=== PATIENT | female | born 1985 | race Caucasian/White ===

== ENCOUNTER 2019-02-16 17:05 | Inpatient (IN) | payer SELFPAY ==
--- NOTE | 2019-02-16 17:26 | Event Note ---
ED Screening Note ED Screening Note: Pt presnets with epigastric abd pain that began 45 min ago states she ate something spicy and began feeling pain after +N/V no diarrhea no fever no cycle, has IUD no urinary sx no abd surgeries no medical hx no daily meds no allergies to meds non smoker non drinker no drug use This initial assessment/diagnostic orders/clinical plan/treatment(s) is/are subject to change based on patients health status, clinical progression and re- assessment by fellow clinical providers in the ED. Further treatment and workup at subsequent clinical providers discretion. Patient/guardian urged not to elope from the ED as their condition may be serious if not clinically assessed and managed. Initial orders include: labs, UA, urine preg
[2019-02-16 18:00] LABS: Basophils # (Auto) 0.1 K/mm3 (0.0-0.1); Basophils % (Auto) 0.7 % (0.0-1.8); Eosinophils # (Auto) 0.2 K/mm3 (0.0-0.4); Eosinophils % (Auto) 1.5 % (0.0-4.3); Hematocrit 40.6 % (30.3-42.9); Hemoglobin 13.6 gm/dl (10.1-14.3); Lymphocytes # (Auto) 4.3 K/mm3 (1.2-5.4); Lymphocytes % (Auto) 41.5 % (13.4-35.0); Mean Corpuscular HGB Conc 34 % (30-34); Mean Corpuscular Volume 82 fl (79-97); Monocytes # (Auto) 0.6 K/mm3 (0.0-0.8); Monocytes % (Auto) 5.4 % (0.0-7.3); Platelet Count 316 K/mm3 (140-440); Red Blood Count 4.96 M/mm3 (3.65-5.03); Red Cell Distribution Width 14.5 % (13.2-15.2)
[2019-02-16 18:11] LABS: Bacteria,Urine 1+ /HPF (Negative); Bilirubin,Urine NEG (Negative); Blood,Urine NEG (Negative); Color,Urine Yellow (Yellow); HCG Qualitative,Urine Negative (Negative); Mucus,Urine FEW /HPF; Protein,Urine <15 mg/dL mg/dL (Negative); Urobilinogen,Urine < 2.0 mg/dL (<2.0)
[2019-02-16 18:19] LABS: Alanine Aminotransferase 54 units/L (7-56); Albumin 4.2 g/dL (3.9-5); BUN/Creatinine Ratio 26; Blood Urea Nitrogen 18 mg/dL (7-17); Calcium 9.2 mg/dL (8.4-10.2); Hemolysis Index 6
[2019-02-16] MEDS ORDERED: NACL 0.9% 1000 ML 1,000 ML IV ONE (19:26)
[2019-02-16] MEDS ORDERED: TORADOL IV ONE (19:26)
[2019-02-16] MEDS ORDERED: ZOFRAN IV ONE (19:26)
--- NOTE | 2019-02-16 19:34 | Emergency Department Report ---
ED Abdominal Pain HPI - General Chief Complaint: Abdominal Pain Stated Complaint: ABD PAIN Time Seen by Provider: 02/16/19 17:24 Source: patient Mode of arrival: Ambulatory Limitations: No Limitations - History of Present Illness Initial Comments: pt is a 33 y/o female who presents for epigastric pain 5/10 radiating to RUQ, there is intermittent N/V , no fever or chills pt has hx of GERD , pain is exacerbated by po intake , pt not currently taking PPI or H2 Blockers MD Complaint: abdominal pain Onset/Timin Location: RUQ, epigastric Radiation: RUQ Migration to: RUQ Severity: moderate Severity scale (0 -10): 5 Quality: burning, other (pressure ) Consistency: constant Improves With: rest Worsens With: eating Associated Symptoms: nausea, vomiting. denies: diarrhea, fever, chills, constipation, dysuria, melena, hematuria, anorexia, syncope - Related Data LMP Date: 02/09/19 Previous Rx's Medication Instructions Recorded Last Taken Type Ibuprofen [Motrin 800 MG tab] 800 mg PO Q8HR PRN #30 tablet 12/24/15 Unknown Rx oxyCODONE /ACETAMINOPHEN [Percocet 2 tab PO Q6HR PRN #30 tablet 12/24/15 Unknown Rx 5/325] Allergies Allergy/AdvReac Type Severity Reaction Status Date / Time No Known Allergies Allergy Verified 12/24/15 03:40 ED Review of Systems ROS: Stated complaint: ABD PAIN Other details as noted in HPI Constitutional: denies: chills, fever Eyes: denies: eye pain, eye discharge, vision change ENT: denies: ear pain, throat pain Respiratory: denies: cough, shortness of breath, wheezing Cardiovascular: denies: chest pain, palpitations Endocrine: no symptoms reported Gastrointestinal: abdominal pain, nausea, vomiting. denies: diarrhea, constipation, hematemesis, melena, hematochezia Genitourinary: denies: urgency, dysuria, frequency, hematuria, discharge, dyspareunia Musculoskeletal: denies: back pain, joint swelling, arthralgia Skin: denies: rash, lesions Neurological: denies: headache, weakness, paresthesias Psychiatric: denies: anxiety, depression Hematological/Lymphatic: denies: easy bleeding, easy bruising ED Past Medical Hx - Past Medical History Previous Medical History?: Yes Hx Hypertension: No Hx Diabetes: No Hx Deep Vein Thrombosis: No Hx Renal Disease: No Hx Sickle Cell Disease: No Hx Seizures: No Hx Asthma: No Hx HIV: No Additional medical history: Vaginal delivery 09-11-2018 - Social History Smoking Status: Never Smoker Substance Use Type: None - Medications Home Medications: Home Medications Medication Instructions Recorded Confirmed Last Taken Type Ibuprofen [Motrin 800 MG tab] 800 mg PO Q8HR PRN #30 tablet 12/24/15 Unknown Rx oxyCODONE /ACETAMINOPHEN [Percocet 2 tab PO Q6HR PRN #30 tablet 12/24/15 U nknown Rx 5/325] ED Physical Exam - General Limitations: No Limitations General appearance: alert - Head Head exam: Present: atraumatic, normocephalic - Eye Eye exam: Present: normal appearance, PERRL, EOMI Pupils: Present: normal accommodation - ENT ENT exam: Present: normal orophraynx, mucous membranes moist, TM's normal bilaterally, normal external ear exam - Neck Neck exam: Present: normal inspection, full ROM. Absent: tenderness, lymphadenopathy, thyromegaly - Respiratory Respiratory exam: Present: normal lung sounds bilaterally. Absent: respiratory distress, wheezes, stridor, chest wall tenderness - Cardiovascular Cardiovascular Exam: Present: regular rate, normal rhythm, normal heart sounds. Absent: systolic murmur, diastolic murmur, rubs, gallop - GI/Abdominal GI/Abdominal exam: Present: soft, tenderness (RUQ Epigasric ), normal bowel sounds. Absent: distended, guarding, rebound, rigid, bruit, hernia - Expanded GI/Abdominal Exam Expanded GI/Abdominal exam: Present: Kamara's sign. Absent: psoas sign, obturator sign, heel tap sign, Rovsing's sign, tenderness at Mcburney's Point, ascites - Rectal Rectal exam: Present: deferred - Extremities Exam Extremities exam: Present: normal inspection, full ROM, normal capillary refill. Absent: tenderness, pedal edema, joint swelling, calf tenderness - Back Exam Back exam: Present: normal inspection, full ROM. Absent: tenderness, CVA tenderness (R), CVA tenderness (L), muscle spasm, paraspinal tenderness, vertebral tenderness, rash noted - Neurological Exam Neurological exam: Present: alert, oriented X3, CN II-XII intact, normal gait, reflexes normal. Absent: motor sensory deficit - Psychiatric Psychiatric exam: Present: normal affect, normal mood - Skin Skin exam: Present: warm, dry, intact, normal color. Absent: rash ED Course Vital Signs 02/16/19 17:19 Temperature 98.8 F Pulse Rate 76 Respiratory 22 Rate Blood Pressure 139/91 O2 Sat by Pulse 100 Oximetry ED Medical Decision Making - Lab Data Result diagrams: 02/16/19 17:35 02/16/19 17:35 Labs 02/16/19 02/16/19 02/16/19 17:34 17:35 17:35 WBC 10.3 RBC 4.96 Hgb 13.6 Hct 40.6 MCV 82 MCH 28 MCHC 34 RDW 14.5 Plt Count 316 Lymph % (Auto) 41.5 H [place] % (Auto) 5.4 Eos % (Auto) 1.5 Baso % (Auto) 0.7 Lymph # 4.3 [place] # 0.6 Eos # 0.2 Baso # 0.1 Seg Neutrophils % 50.9 Seg Neutrophils # 5.2 Sodium 141 Potassium 3.7 Chloride 102.4 Carbon Dioxide 26 Anion Gap 16 BUN 18 H Creatinine 0.7 Estimated GFR > 60 BUN/Creatinine Ratio 26 Glucose 94 Calcium 9.2 Total Bilirubin < 0.20 AST 64 H ALT 54 Alkaline Phosphatase 105 Total Protein 7.9 Albumin 4.2 Albumin/Globulin Ratio 1.1 Lipase 21 Urine Color Yellow Urine Turbidity Slightly-cloudy Urine pH 5.0 Ur Specific [place] 1.031 H Urine Protein <15 mg/dl Urine Glucose (UA) Neg Urine Ketones Neg Urine Blood Neg Urine Nitrite Neg Urine Bilirubin Neg Urine Urobilinogen < 2.0 Ur Leukocyte Esterase Neg Urine WBC (Auto) 2.0 Urine RBC (Auto) 3.0 U Epithel Cells (Auto) 8.0 Urine Bacteria (Auto) 1+ Urine Mucus Few Urine HCG, Qual Negative - Radiology Data Radiology results: report reviewed, image reviewed Ordering Physician: KWAME BAY NP Date of Service: 02/16/19 Procedure(s): US abdomen limited Accession Number(s): [id number] cc: KWAME BAY NP PROCEDURE: US ABDOMEN LIMITED TECHNIQUE: Real-time sonography was performed of the right upper quadrant with image documentation. HISTORY: abd pain COMPARISONS: None . FINDINGS: Pancreas is not well-visualized due to bowel gas. Liver and right kidney demonstrate normal echotexture. Right kidney measures 9.6 x 5.6 x 4.4 cm. There are no calculi or hydronephrosis. Proximal aorta is of normal caliber. Gallbladder is filled with multiple shadowing calculi measuring up to 1.4 cm. Gallbladder lazcano are mildly thickened. Common duct is 10 mm in diameter. IMPRESSION: Cholelithiasis with evidence of cholecystitis. Common duct is mildly dilated measuring 10 mm.. This document is electronically signed by Effie Garcia MD., February 16 2019 08:55:48 PM ET Transcribed By: [facility] [place] Dictated By: EFFIE GARCIA Electronically Authenticated By: EFFIE GARCIA Signed Date/Time: 02/16/192056 DD/ 16 TD/TT: 02/16/192016 - Medical Decision Making US Gallbadder : 10mm common bile duct dilitation, N/v is improved, ed attending consulted recommendation consult GI and Admiission, ivfs and pain co ntrol, GI consulted advised admission dx : cholecystitis discussed tx plan with patient , patient agrees with admission, will admit to Hospitalist Dx Cholecystitis pat care handoff at this time to hospitalist. Critical care attestation.: If time is entered above; I have spent that time in minutes in the direct care of this critically ill patient, excluding procedure time. ED Disposition Clinical Impression: Cholecystitis Cholelithiasis Qualifiers: Cholelithiasis location: bile duct Cholecystitis presence: with cholecystitis Cholecystitis acuity: acute Biliary obstruction: with biliary obstruction Qualified Code(s): K80.43 - Calculus of bile duct with acute cholecystitis with obstruction Disposition: -09 OP ADMIT IP TO THIS HOSP Is pt being admited?: Yes Does the pt Need Aspirin: No Condition: Stable Instructions: Cholecystitis (ED) Time of Disposition: 22:55
--- NOTE | 2019-02-16 20:57 | Ultrasound Report ---
PROCEDURE: US ABDOMEN LIMITED TECHNIQUE: Real-time sonography was performed of the right upper quadrant with image documentation. HISTORY: abd pain COMPARISONS: None . FINDINGS: Pancreas is not well-visualized due to bowel gas. Liver and right kidney demonstrate normal echotextu re. Right kidney measures 9.6 x 5.6 x 4.4 cm. There are no calculi or hydronephrosis. Proximal aorta is of normal caliber. Gallbladder is filled with multiple shadowing calculi measuring up to 1.4 cm. G allbladder lazcano are mildly thickened. Common duct is 10 mm in diameter. IMPRESSION: Cholelithiasis with evidence of cholecystitis. Common duct is mildly dilated measuring 10 mm.. This document is electronically signed by Wilian Garcia MD., February 16 2019 08:55:48 PM ET
[2019-02-16] MEDS ORDERED: BENADRYL IV ONE (21:29)
[2019-02-16] MEDS ORDERED: MORPHINE IV PRN (21:29)
[2019-02-16] MEDS ORDERED: REGLAN IV PRN (21:29)
[2019-02-16] MEDS ORDERED: ZOSYN/NS 4.5GM/100ML 4.5 GM/100 ML VIAL IV ONE (21:39)
[2019-02-16] MEDS ORDERED: SODIUM CHLORIDE FLUSH SYRINGE 10 ML IV PRN (23:16)
[2019-02-16] MEDS ORDERED: TYLENOL PO PRN (23:16)
[2019-02-16] MEDS ORDERED: ZOFRAN IV PRN (23:16)
[2019-02-16] MEDS ORDERED: TORADOL IV PRN (23:19)
--- NOTE | 2019-02-16 23:24 | History and Physical Report ---
<AMIRA EGAN - Last Filed: 02/16/19 23:50> History of Present Illness Date of examination: 02/16/19 Date of admission: 02/16/2019 Chief complaint: Abdominal pain History of present illness: 33-year-old mother of 4 with no significant past medical history presents to [facility] ED with complaints of epigastric abdominal pain x2days. She states she has been experiencing sharp epigastric pain radiating to RUQ for the past 2 days. Patient states her pain is constant but varies in intensity. She rates her pain 5/10. Her pain is aggravated by oral intake, and relieved ith pain meds and not eating. She complains of associated nausea and emesis 2. Denies: hx of GERD, constipation, diarrhea, fever, headache, hemoptysis, hematochezia, or melena Past History Past Medical History: other (vaginal delivery x4) Past Surgical History: No surgical history Social history: , lives with family Family history: no significant family history Medications and Allergies Allergies Allergy/AdvReac Type Severity Reaction Status Date / Time No Known Allergies Allergy Verified 12/24/15 03:40 Home Medications Medication Instructions Recorded Confirmed Last Taken Type Ibuprofen [Motrin 800 MG tab] 800 mg PO Q8HR PRN #30 tablet 12/24/15 Unknown Rx oxyCODONE /ACETAMINOPHEN [Percocet 2 tab PO Q6HR PRN #30 tablet 12/24/15 Unknown Rx 5/325] Active Meds: Active Medications Acetaminophen (Tylenol) 650 mg PO Q4H PRN PRN Reason: Pain MILD(1-3)/Fever >100.5/OLIVER Enoxaparin Sodium (Lovenox) 40 mg SUB-Q QDAY MARICRUZ Sodium Chloride (Nacl 0.9% 1000 Ml) 1,000 mls @ 125 mls/hr IV DIRECT MARICRUZ Ketorolac Tromethamine (Toradol) 15 mg IV Q6H PRN PRN Reason: Pain, Mild (1-3) Stop: 02/21/19 23:18 Metoclopramide HCl (Reglan) 10 mg IV Q6H PRN PRN Reason: Nausea And Vomiting Morphine Sulfate (Morphine) 2 mg IV Q4H PRN PRN Reason: Pain, Moderate (4-6) Ondansetron HCl (Zofran) 4 mg IV Q8H PRN PRN Reason: Nausea And Vomiting Sodium Chloride (Sodium Chloride Flush Syringe 10 Ml) 10 ml IV BID MARICRUZ Sodium Chloride (Sodium Chloride Flush Syringe 10 Ml) 10 ml IV PRN PRN PRN Reason: LINE FLUSH Review of Systems All systems: negative (reviewed and no additional remarkable complaints except as noted below) Gastrointestinal: abdominal pain, nausea, vomiting (emesis 2) Exam - Physical Exam Narrative exam: Physical exam General appearance: Present: No acute distress, alert and oriented 3, well- nourished, well-developed female - EENT Eyes: Present: PERRL, EOM intact ENT: hearing intact, normal dentition - Neck Neck: Present: supple, normal ROM - Respiratory Respiratory effort: Non-labored Respiratory: Clear throughout - Cardiovascular Heart rate: 76 (bpm) Rhythm: regular Heart Sounds: Present: S1 & S2. Absent: rub, click - Extremities Extremities: no ischemia, pulses intact, - Peripheral Assessment Peripheral Pulses: within normal limits - Abdominal General gastrointestinal: Obese, soft, tenderness to epigastric, normal bowel sounds - Integumentary Integumentary: Present: warm, dry - Musculoskeletal Musculoskeletal: Able to move all extremities -Neurological Neurological: CN II-XII grossly intact - Psychiatric Psychiatric: Appropriate for situation, cooperative - Constitutional Vitals: Temp Pulse Resp BP Pulse Ox 98.8 F 76 22 139/91 100 02/16/19 17:19 02/16/19 17:19 02/16/19 17:19 02/16/19 17:19 02/16/19 17:19 Results - Labs CBC & Chem 7: 02/16/19 17:35 02/16/19 17:35 Labs: Laboratory Last Values WBC 10.3 K/mm3 (4.5-11.0) 02/16/19 17:35 RBC 4.96 M/mm3 (3.65-5.03) 02/16/19 17:35 Hgb 13.6 gm/dl (10.1-14.3) 02/16/19 17:35 Hct 40.6 % (30.3-42.9) 02/16/19 17:35 MCV 82 fl (79-97) 02/16/19 17:35 MCH 28 pg (28-32) 02/16/19 17:35 MCHC 34 % (30-34) 02/16/19 17:35 RDW 14.5 % (13.2-15.2) 02/16/19 17:35 Plt Count 316 K/mm3 (140-440) 02/16/19 17:35 Lymph % (Auto) 41.5 % (13.4-35.0) H 02/16/19 17:35 [place] % (Auto) 5.4 % (0.0-7.3) 02/16/19 17:35 Eos % (Auto) 1.5 % (0.0-4.3) 02/16/19 17:35 Baso % (Auto) 0.7 % (0.0-1.8) 02/16/19 17:35 Lymph # 4.3 K/mm3 (1.2-5.4) 02/16/19 17:35 [place] # 0.6 K/mm3 (0.0-0.8) 02/16/19 17:35 Eos # 0.2 K/mm3 (0.0-0.4) 02/16/19 17:35 Baso # 0.1 K/mm3 (0.0-0.1) 02/16/19 17:35 Seg Neutrophils % 50.9 % (40.0-70.0) 02/16/19 17:35 Seg Neutrophils # 5.2 K/mm3 (1.8-7.7) 02/16/19 17:35 Sodium 141 mmol/L (137-145) 02/16/19 17:35 Potassium 3.7 mmol/L (3.6-5.0) 02/16/19 17:35 Chloride 102.4 mmol/L (98-107) 02/16/19 17:35 Carbon Dioxide 26 mmol/L (22-30) 02/16/19 17:35 16 mmol/L 02/16/19 17:35 BUN 18 mg/dL (7-17) H 02/16/19 17:35 0.7 mg/dL (0.7-1.2) 02/16/19 17:35 Estimated GFR > 60 ml/min 02/16/19 17:35 26 % 02/16/19 17:35 Glucose 94 mg/dL (65-100) 02/16/19 17:35 Calcium 9.2 mg/dL (8.4-10.2) 02/16/19 17:35 < 0.20 mg/dL (0.1-1.2) 02/16/19 17:35 AST 64 units/L (5-40) H 02/16/19 17:35 ALT 54 units/L (7-56) 02/16/19 17:35 105 units/L (35-129) 02/16/19 17:35 7.9 g/dL (6.3-8.2) 02/16/19 17:35 4.2 g/dL (3.9-5) 02/16/19 17:35 1.1 % 02/16/19 17:35 21 units/L (13-60) 02/16/19 17:35 Yellow (Yellow) 02/16/19 17:34 Slightly-cloudy (Clear) 02/16/19 17:34 5.0 (5.0-7.0) 02/16/19 17:34 Ur Specific [place] 1.031 (1.003-1.030) H 02/16/19 17:34 <15 mg/dl mg/dL (Negative) 02/16/19 17:34 Neg mg/dL (Negative) 02/16/19 17:34 Neg mg/dL (Negative) 02/16/19 17:34 Neg (Negative) 02/16/19 17:34 Neg (Negative) 02/16/19 17:34 Neg (Negative) 02/16/19 17:34 < 2.0 mg/dL (<2.0) 02/16/19 17:34 Ur Leukocyte Esterase Neg (Negative) 02/16/19 17:34 2.0 /HPF (0.0-6.0) 02/16/19 17:34 3.0 /HPF (0.0-6.0) 02/16/19 17:34 U Epithel Cells (Auto) 8.0 /HPF (0-13.0) 02/16/19 17:34 1+ /HPF (Negative) 02/16/19 17:34 Few /HPF 02/16/19 17:34 Urine HCG, Qual Negative (Negative) 02/16/19 17:34 - Imaging and Cardiology Imaging and Cardiology: Abdominal ultrasound: FINDINGS: Pancreas is not well-visualized due to bowel gas. Liver and right kidney demonstrate normal echotexture. Right kidney measures 9.6 x 5.6 x 4.4 cm. There are no calculi or hydronephrosis. Proximal aorta is of normal caliber. Gallbladder is filled with multiple shadowing calculi measuring up to 1.4 cm. Gallbladder lazcano are mildly thickened. Common duct is 10 mm in diameter. IMPRESSION: Cholelithiasis with evidence of cholecystitis. Common duct is mildly dilated measuring 10 mm.. Assessment and Plan Assessment and plan: 33-year-old female with no significant past medical history presents to [facility] ED with complaints of epigastric abdominal pain x2days. Patient is afebrile, hypertensive with bp 139/91 with no evidence of leukocytosis. Abdominal ultrasound showed cholelithiasis with evidence of cholecystitis. Will admit to Med/Surg with plans for MRCP in AM. Dr. Boggs has been consulted. Cholelithiasis Cholecystitis Acute abdominal pain Hypertension-likely due to acute abdominal pain Dehydration Plan: Continue supportive care NPO Pain management COntinue Hydration with IVF NS @125 ml/hr Gen [place] (Dr. Boggs) consulted MRCP in am Patient denies history of hypertension. Hypertension likely due to acute abdominal pain, will hold off on antihypertensive for now and monitor BP DVT PPX on Lovenox and SCD's Advance Directives: No VTE prophylaxis?: Chemical Plan of care discussed with patient/family: Yes <LESLYE BERNAL - Last Filed: 02/17/19 02:19> History of Present Illness Date of admission: 02/16/19 23:16 Medications and Allergies Active Meds: Active Medications Acetaminophen (Tylenol) 650 mg PO Q4H PRN PRN Reason: Pain MILD(1-3)/Fever >100.5/OLIVER Enoxaparin Sodium (Lovenox) 40 mg SUB-Q QDAY MARICRUZ Sodium Chloride (Nacl 0.9% 1000 Ml) 1,000 mls @ 125 mls/hr IV DIRECT MARICRUZ Ketorolac Tromethamine (Toradol) 15 mg IV Q6H PRN PRN Reason: Pain, Mild (1-3) Stop: 02/21/19 23:18 Metoclopramide HCl (Reglan) 10 mg IV Q6H PRN PRN Reason: Nausea And Vomiting Morphine Sulfate (Morphine) 2 mg IV Q4H PRN PRN Reason: Pain, Moderate (4-6) Ondansetron HCl (Zofran) 4 mg IV Q8H PRN PRN Reason: Nausea And Vomiting Sodium Chloride (Sodium Chloride Flush Syringe 10 Ml) 10 ml IV BID MARICRUZ Sodium Chloride (Sodium Chloride Flush Syringe 10 Ml) 10 ml IV PRN PRN PRN Reason: LINE FLUSH Exam - Constitutional Vitals: Temp Pulse Resp BP Pulse Ox 98.8 F 76 22 139/91 100 02/16/19 17:19 02/16/19 17:19 02/16/19 17:19 02/16/19 17:19 02/16/19 17:19 Results - Labs CBC & Chem 7: 02/16/19 17:35 02/16/19 17:35 Labs: Laboratory Last Values WBC 10.3 K/mm3 (4.5-11.0) 02/16/19 17:35 RBC 4.96 M/mm3 (3.65-5.03) 02/16/19 17:35 Hgb 13.6 gm/dl (10.1-14.3) 02/16/19 17:35 Hct 40.6 % (30.3-42.9) 02/16/19 17:35 MCV 82 fl (79-97) 02/16/19 17:35 MCH 28 pg (28-32) 02/16/19 17:35 MCHC 34 % (30-34) 02/16/19 17:35 RDW 14.5 % (13.2-15.2) 02/16/19 17:35 Plt Count 316 K/mm3 (140-440) 02/16/19 17:35 Lymph % (Auto) 41.5 % (13.4-35.0) H 02/16/19 17:35 [place] % (Auto) 5.4 % (0.0-7.3) 02/16/19 17:35 Eos % (Auto) 1.5 % (0.0-4.3) 02/16/19 17:35 Baso % (Auto) 0.7 % (0.0-1.8) 02/16/19 17:35 Lymph # 4.3 K/mm3 (1.2-5.4) 02/16/19 17:35 [place] # 0.6 K/mm3 (0.0-0.8) 02/16/19 17:35 Eos # 0.2 K/mm3 (0.0-0.4) 02/16/19 17:35 Baso # 0.1 K/mm3 (0.0-0.1) 02/16/19 17:35 Seg Neutrophils % 50.9 % (40.0-70.0) 02/16/19 17:35 Seg Neutrophils # 5.2 K/mm3 (1.8-7.7) 02/16/19 17:35 Sodium 141 mmol/L (137-145) 02/16/19 17:35 Potassium 3.7 mmol/L (3.6-5.0) 02/16/19 17:35 Chloride 102.4 mmol/L (98-107) 02/16/19 17:35 Carbon Dioxide 26 mmol/L (22-30) 02/16/19 17:35 16 mmol/L 02/16/19 17:35 BUN 18 mg/dL (7-17) H 02/16/19 17:35 0.7 mg/dL (0.7-1.2) 02/16/19 17:35 Estimated GFR > 60 ml/min 02/16/19 17:35 26 % 02/16/19 17:35 Glucose 94 mg/dL (65-100) 02/16/19 17:35 Calcium 9.2 mg/dL (8.4-10.2) 02/16/19 17:35 < 0.20 mg/dL (0.1-1.2) 02/16/19 17:35 AST 64 units/L (5-40) H 02/16/19 17:35 ALT 54 units/L (7-56) 02/16/19 17:35 105 units/L (35-129) 02/16/19 17:35 7.9 g/dL (6.3-8.2) 02/16/19 17:35 4.2 g/dL (3.9-5) 02/16/19 17:35 1.1 % 02/16/19 17:35 21 units/L (13-60) 02/16/19 17:35 Yellow (Yellow) 02/16/19 17:34 Slightly-cloudy (Clear) 02/16/19 17:34 5.0 (5.0-7.0) 02/16/19 17:34 Ur Specific [place] 1.031 (1.003-1.030) H 02/16/19 17:34 <15 mg/dl mg/dL (Negative) 02/16/19 17:34 Neg mg/dL (Negative) 02/16/19 17:34 Neg mg/dL (Negative) 02/16/19 17:34 Neg (Negative) 02/16/19 17:34 Neg (Negative) 02/16/19 17:34 Neg (Negative) 02/16/19 17:34 < 2.0 mg/dL (<2.0) 02/16/19 17:34 Ur Leukocyte Esterase Neg (Negative) 02/16/19 17:34 2.0 /HPF (0.0-6.0) 02/16/19 17:34 3.0 /HPF (0.0-6.0) 02/16/19 17:34 U Epithel Cells (Auto) 8.0 /HPF (0-13.0) 02/16/19 17:34 1+ /HPF (Negative) 02/16/19 17:34 Few /HPF 02/16/19 17:34 Urine HCG, Qual Negative (Negative) 02/16/19 17:34 Assessment and Plan Assessment and plan: Patient seen and examined, discussed with AERIAL PHOTOGRAPHER. 33 year old woman with no medical problems comes to the ER complaining of epigastric pain radiating to the RUQ, associated with nausea, vomiting for 2 days. Patient had similar symptoms 2 years ago that resolved. CAT scan of the abdomen and pelvis shows cholelithiasis with cholecystitis and common bile duct dilatation. Agree with plan as stated above
[2019-02-17] MEDS: NACL 0.9% 1000 ML 1,000 ML IV SCH ×2 (05:20→15:42)
[2019-02-17 07:47] LABS: Basophils % (Auto) 0.6 % (0.0-1.8); Eosinophils # (Auto) 0.1 K/mm3 (0.0-0.4); Eosinophils % (Auto) 1.5 % (0.0-4.3); Hematocrit 37.8 % (30.3-42.9); Hemoglobin 12.7 gm/dl (10.1-14.3); Lymphocytes # (Auto) 2.4 K/mm3 (1.2-5.4); Lymphocytes % (Auto) 32.5 % (13.4-35.0); Mean Corpuscular HGB Conc 34 % (30-34); Mean Corpuscular Volume 81 fl (79-97); Monocytes # (Auto) 0.5 K/mm3 (0.0-0.8); Monocytes % (Auto) 6.5 % (0.0-7.3); Platelet Count 273 K/mm3 (140-440); Red Blood Count 4.65 M/mm3 (3.65-5.03); Red Cell Distribution Width 14.5 % (13.2-15.2)
[2019-02-17 07:57] LABS: BUN/Creatinine Ratio 23; Blood Urea Nitrogen 16 mg/dL (7-17); Calcium 8.2 mg/dL (8.4-10.2); Hemolysis Index 4
--- NOTE | 2019-02-17 11:02 | Magnetic Resonance Report ---
MR ABDOMEN MRCP History: Cholecystitis, abdominal pain. Technique: Multiple T1 and T2-weighted images were obtained with and without fat suppression. In and out of phase imaging. Radial MRCP images. Thin slab MRCP images. Comparison: Right upper quadrant ultrasound performed 02/16/19. Findings: The MRCP images demonstrate multiple gallstones measuring up to 1.5 cm in diameter. The gallbladder is normal size, contour and wall thickness. No inflammatory changes or pericholecystic fluid. The CBD has decreased from 10 mm on the previous ultrasound to 6 mm on MRCP. There is smooth tapering of the distal common bile duct near the ampulla. No filling defect is identified to suggest choledocholithiasis. Interval passage of a stone? The liver is normal size, contour and signal. A 9 mm cavernous hemangioma is suspected in the left hepatic lobe. No suspicious mass, intrahepatic biliary dilatation or parenchymal disease. The pancreas, spleen, kidneys, adrenal glands, visualized bowel loops and aorta are unremarkable. No evidence for ascites, adenopathy or inflammatory changes. IMPRESSION: Cholelithiasis. No findings to suggest acute cholecystitis. The common bile duct measures 6 mm. No choledocholithiasis is detected. See above.
--- NOTE | 2019-02-17 12:26 | Progress Note ---
Assessment and Plan Full consult dictated: 33 y/o female admlitted secondary to epig abd pain. + gallstones. pt feeling much better this am. no pain Abd soft, non tender. wbc, LFT's - wnl MRCP decreased CBD diameter down to 6 mm (from 10). no CBD stones noted. no evidence of acute cholecystitis (no thickened wall or pericholecystic fluid) clinically stable probable passed small CBD stone (as LFT's were never elevated). attempt low fat cl liq diet Chief complaint: Abdominal pain History of present illness: 33-year-old mother of 4 with no significant past medical history presents to [facility] ED with complaints of epigastric abdominal pain x2days. She states she has been experiencing sharp epigastric pain radiating to RUQ for the past 2 days. Patient states her pain is constant but varies in intensity. She rates her pain 5/10. Her pain is aggravated by oral intake, and relieved ith pain meds and not eating. She complains of associated nausea and emesis 2. Denies: hx of GERD, constipation, diarrhea, fever, headache, hemoptysis, hematochezia, or melena Past History Past Medical History: other (vaginal delivery x4) Past Surgical History: No surgical history Social history: , lives with family Family history: no significant family history Selected Entries 02/17/19 04:11 Temperature 97.8 F Pulse Rate 55 L Respiratory 18 Rate Blood Pressure 101/54 Laboratory Tests 02/16/19 02/16/19 02/17/19 17:35 17:35 07:05 WBC 10.3 7.4 Hgb 13.6 12.7 Hct 40.6 MCV 81 Sodium Potassium Chloride Carbon Dioxide BUN Creatinine Total Bilirubin < 0.20 AST 64 H ALT 54 Alkaline Phosphatase 105 Lipase 21 02/17/19 07:05 WBC Hgb Hct MCV Sodium 144 Potassium 3.9 Chloride 108.8 H Carbon Dioxide 25 BUN 16 Creatinine 0.7 Total Bilirubin AST ALT Alkaline Phosphatase Lipase Objective Vital Signs - 12hr 02/17/19 04:11 Temperature 97.8 F Pulse Rate 55 L Respiratory 18 Rate Blood Pressure 101/54 O2 Sat by Pulse 98 Oximetry - Labs 02/17/19 07:05 02/17/19 07:05 Diabetes panel 02/16/19 02/17/19 Range/Units 17:35 07:05 Sodium 141 144 (137-145) mmol/L Potassium 3.7 3.9 (3.6-5.0) mmol/L Chloride 102.4 108.8 H (98-107) mmol/L Carbon Dioxide 26 25 (22-30) mmol/L BUN 18 H 16 (7-17) mg/dL Creatinine 0.7 0.7 (0.7-1.2) mg/dL Glucose 94 84 (65-100) mg/dL Calcium 9.2 8.2 L (8.4-10.2) mg/dL AST 64 H (5-40) units/L ALT 54 (7-56) units/L Alkaline Phosphatase 105 (35-129) units/L Total Protein 7.9 (6.3-8.2) g/dL Albumin 4.2 (3.9-5) g/dL Calcium panel 02/16/19 02/17/19 Range/Units 17:35 07:05 Calcium 9.2 8.2 L (8.4-10.2) mg/dL Albumin 4.2 (3.9-5) g/dL Pituitary panel 02/16/19 02/17/19 Range/Units 17:35 07:05 Sodium 141 144 (137-145) mmol/L Potassium 3.7 3.9 (3.6-5.0) mmol/L Chloride 102.4 108.8 H (98-107) mmol/L Carbon Dioxide 26 25 (22-30) mmol/L BUN 18 H 16 (7-17) mg/dL Creatinine 0.7 0.7 (0.7-1.2) mg/dL Glucose 94 84 (65-100) mg/dL Calcium 9.2 8.2 L (8.4-10.2) mg/dL Adrenal panel 02/16/19 02/17/19 Range/Units 17:35 07:05 Sodium 141 144 (137-145) mmol/L Potassium 3.7 3.9 (3.6-5.0) mmol/L Chloride 102.4 108.8 H (98-107) mmol/L Carbon Dioxide 26 25 (22-30) mmol/L BUN 18 H 16 (7-17) mg/dL Creatinine 0.7 0.7 (0.7-1.2) mg/dL Glucose 94 84 (65-100) mg/dL Calcium 9.2 8.2 L (8.4-10.2) mg/dL Total Bilirubin < 0.20 (0.1-1.2) mg/dL AST 64 H (5-40) units/L ALT 54 (7-56) units/L Alkaline Phosphatase 105 (35-129) units/L Total Protein 7.9 (6.3-8.2) g/dL Albumin 4.2 (3.9-5) g/dL
--- NOTE | 2019-02-17 13:54 | Progress Note ---
Assessment and Plan - Patient Problems (1) Cholelithiasis Current Visit: Yes Status: Acute Qualifiers: Cholelithiasis location: bile duct Cholecystitis presence: with cholecystitis Cholecystitis acuity: acute Biliary obstruction: with biliary obstruction Qualified Code(s): K80.43 - Calculus of bile duct with acute cholecystitis with obstruction Plan to address problem: Cholelithiasis. Normal LFTs. MRCP improved. No, bowel duct dilatation. Plan is to see if patient tolerates by mouth meals. Without nausea vomiting abdominal pain and be followed up in outpatient setting if stable. History Interval history: 33-year-old presented with abdominal pain right upper quadrant associated with nausea and vomiting. Ultrasound showed gallstones with mild thickening of the gallbladder wall. Further evaluation today shows patient to be comfortable. Follow-up MRCP in fact shoulder reduction of gallbladder thickness Hospitalist Physical - Constitutional Vitals: Temp Pulse Resp BP Pulse Ox 98.4 F 57 L 19 122/68 97 02/17/19 12:53 02/17/19 12:53 02/17/19 12:53 02/17/19 12:53 02/17/19 12:53 General appearance: Present: no acute distress - EENT Eyes: Present: PERRL, EOM intact ENT: hearing intact, clear oral mucosa, dentition normal - Neck Neck: Present: supple, normal ROM - Respiratory Respiratory: bilateral: CTA - Cardiovascular Rhythm: irregularly irregular - Extremities Extremities: no ischemia, pulses intact, pulses symmetrical, No edema, normal temperature Peripheral Pulses: within normal limits - Abdominal General gastrointestinal: soft, tender, non-distended, no rigid, no normal bowel sounds, no hypoactive bowel sounds, no absent bowel sounds, no hepatomegaly, no splenomegaly - Integumentary Integumentary: Present: clear, warm, dry - Psychiatric Psychiatric: appropriate mood/affect, intact judgment & insight, memory intact - Neurologic Neurologic: CNII-XII intact, focal deficits, moves all extremities Results - Labs CBC & Chem 7: 02/17/19 07:05 02/17/19 07:05 Labs: Laboratory Last Values WBC 7.4 K/mm3 (4.5-11.0) 02/17/19 07:05 RBC 4.65 M/mm3 (3.65-5.03) 02/17/19 07:05 Hgb 12.7 gm/dl (10.1-14.3) 02/17/19 07:05 Hct 37.8 % (30.3-42.9) 02/17/19 07:05 MCV 81 fl (79-97) 02/17/19 07:05 MCH 27 pg (28-32) L 02/17/19 07:05 MCHC 34 % (30-34) 02/17/19 07:05 RDW 14.5 % (13.2-15.2) 02/17/19 07:05 Plt Count 273 K/mm3 (140-440) 02/17/19 07:05 Lymph % (Auto) 32.5 % (13.4-35.0) 02/17/19 07:05 [place] % (Auto) 6.5 % (0.0-7.3) 02/17/19 07:05 Eos % (Auto) 1.5 % (0.0-4.3) 02/17/19 07:05 Baso % (Auto) 0.6 % (0.0-1.8) 02/17/19 07:05 Lymph # 2.4 K/mm3 (1.2-5.4) 02/17/19 07:05 [place] # 0.5 K/mm3 (0.0-0.8) 02/17/19 07:05 Eos # 0.1 K/mm3 (0.0-0.4) 02/17/19 07:05 Baso # 0.0 K/mm3 (0.0-0.1) 02/17/19 07:05 Seg Neutrophils % 58.9 % (40.0-70.0) 02/17/19 07:05 Seg Neutrophils # 4.3 K/mm3 (1.8-7.7) 02/17/19 07:05 Sodium 144 mmol/L (137-145) 02/17/19 07:05 Potassium 3.9 mmol/L (3.6-5.0) 02/17/19 07:05 Chloride 108.8 mmol/L (98-107) H 02/17/19 07:05 Carbon Dioxide 25 mmol/L (22-30) 02/17/19 07:05 14 mmol/L 02/17/19 07:05 BUN 16 mg/dL (7-17) 02/17/19 07:05 0.7 mg/dL (0.7-1.2) 02/17/19 07:05 Estimated GFR > 60 ml/min 02/17/19 07:05 23 % 02/17/19 07:05 Glucose 84 mg/dL (65-100) 02/17/19 07:05 Calcium 8.2 mg/dL (8.4-10.2) L 02/17/19 07:05 < 0.20 mg/dL (0.1-1.2) 02/16/19 17:35 AST 64 units/L (5-40) H 02/16/19 17:35 ALT 54 units/L (7-56) 02/16/19 17:35 105 units/L (35-129) 02/16/19 17:35 7.9 g/dL (6.3-8.2) 02/16/19 17:35 4.2 g/dL (3.9-5) 02/16/19 17:35 1.1 % 02/16/19 17:35 21 units/L (13-60) 02/16/19 17:35 Yellow (Yellow) 02/16/19 17:34 Slightly-cloudy (Clear) 02/16/19 17:34 5.0 (5.0-7.0) 02/16/19 17:34 Ur Specific [place] 1.031 (1.003-1.030) H 02/16/19 17:34 <15 mg/dl mg/dL (Negative) 02/16/19 17:34 Neg mg/dL (Negative) 02/16/19 17:34 Neg mg/dL (Negative) 02/16/19 17:34 Neg (Negative) 02/16/19 17:34 Neg (Negative) 02/16/19 17:34 Neg (Negative) 02/16/19 17:34 < 2.0 mg/dL (<2.0) 02/16/19 17:34 Ur Leukocyte Esterase Neg (Negative) 02/16/19 17:34 2.0 /HPF (0.0-6.0) 02/16/19 17:34 3.0 /HPF (0.0-6.0) 02/16/19 17:34 U Epithel Cells (Auto) 8.0 /HPF (0-13.0) 02/16/19 17:34 1+ /HPF (Negative) 02/16/19 17:34 Few /HPF 02/16/19 17:34 Urine HCG, Qual Negative (Negative) 02/16/19 17:34 Active Medications - Current Medications Current Medications: Generic Name Dose Route Start Last Admin Trade Name Lizabeth PRN Reason Stop Dose Admin Acetaminophen 650 mg 02/16/19 23:16 Tylenol PO Q4H PRN Pain MILD(1-3)/Fever >100.5/OLIVER Enoxaparin Sodium 40 mg 02/17/19 10:00 Lovenox SUB-Q QDAY MARICRUZ Sodium Chloride 1,000 mls @ 125 mls/hr 02/16/19 22:00 02/17/19 05:20 Nacl 0.9% 1000 Ml IV 125 mls/hr DIRECT MARICRUZ Administration Ketorolac Tromethamine 15 mg 02/16/19 23:19 Toradol IV 02/21/19 23:18 Q6H PRN Pain, Mild (1-3) Metoclopramide HCl 10 mg 02/16/19 21:29 Reglan IV Q6H PRN Nausea And Vomiting Morphine Sulfate 2 mg 02/16/19 21:29 Morphine IV Q4H PRN Pain, Moderate (4-6) Ondansetron HCl 4 mg 02/16/19 23:16 Zofran IV Q8H PRN Nausea And Vomiting Sodium Chloride 10 ml 02/17/19 10:00 Sodium Chloride Flush Syringe 10 Ml IV BID MARICRUZ Sodium Chloride 10 ml 02/16/19 23:16 Sodium Chloride Flush Syringe 10 Ml IV PRN PRN LINE FLUSH
[2019-02-17] MEDS: SODIUM CHLORIDE FLUSH SYRINGE 10 ML IV SCH ×2 (15:27→21:13)
[2019-02-17] MEDS: LOVENOX SUB-Q SCH (15:27)
--- NOTE | 2019-02-18 00:12 | Consultation ---
REASON FOR CONSULTATION: Rule out acute cholecystitis. HISTORY OF PRESENT ILLNESS: The patient is a pleasant 33-year-old female who was admitted through the ER last night with a chief complaint of epigastric abdominal pain and an episode of nausea and vomiting. The patient states had similar symptoms approximately 2 years ago, but has been doing fine since. PAST MEDICAL HISTORY: Negative. PAST SURGICAL HISTORY: Negative. ALLERGIES: No known allergies. MEDICATIONS: No medications. FAMILY HISTORY: Negative. SOCIAL HISTORY: Gave approximately 5 months ago and currently lactating her child, but denies any smoking or drinking or other social history. PHYSICAL EXAMINATION: GENERAL: At this time reveals the patient to be awake, alert, cooperative, in no acute distress. She states that she is feeling " and is in " VITAL SIGNS: Show her to be afebrile with a temperature 97.8, blood pressure is 101/54, pulse of 55, respirations 18. HEENT: Pupils are equal and reactive to light and accommodation. Sclerae is nonicteric. ABDOMEN: Examination of the abdomen reveals to be moderately obese, but soft. There is no epigastric tenderness or any other tenderness can be elicited at this time. Bowel sounds are present and normal. LABORATORY DATA: Lab work at present includes a CBC, which shows a white count of 7.4, down from 10.3 on admission. H and H is 12.7 and 37.8. Electrolytes were all essentially within normal limits. LFTs are also within normal limits including a total bilirubin of less than 0.2, AST 64, ALT is 54, alkaline phosphatase is 105. Lipase is normal at 21. Gallbladder ultrasound had been performed at the time of admission, which revealed some gallstones and dilated common bile duct of 10 mm. A reading at that time also stated there was a " However, in reviewing that ultrasound as well as today's MRCP with the radiologist, no evidence of any acute cholecystitis is noted. There is no evidence of any thickened gallbladder wall or pericholecystic fluid. Because of the dilated common bile duct, MRCP was ordered this morning. MRCP now shows the duct diameter to be down to 6 mm. The common bile duct diameter to be down to 6 mm and there are no stones noted within the common duct. Again, no evidence of any acute cholecystitis findings are noted. IMPRESSION: 1. At this time is that of a healthy 33-year-old female with known cholelithiasis, but no evidence of acute cholecystitis. 2. The patient possibly passed a small stone, which caused her initial symptoms on admission. 3. Impression at this time is that the patient is clinically stable. We will attempt a low fat clear liquid diet at this time and see how she tolerates. I will follow closely with you. JOB# [id number] JOSEPH/ELICIA
[2019-02-18] MEDS: NACL 0.9% 1000 ML 1,000 ML IV SCH ×2 (00:42→09:16)
[2019-02-18] MEDS: LOVENOX SUB-Q SCH (09:07)
[2019-02-18] MEDS: SODIUM CHLORIDE FLUSH SYRINGE 10 ML IV SCH (09:15)
--- NOTE | 2019-02-18 10:48 | Discharge Summary ---
Providers - Providers Date of Admission: 02/16/19 23:16 Date of discharge: 02/18/19 Attending physician: ADELA BANKS 02/16/19 21:37 Consult to Physician [CONS] Stat Comment: ASSISTANT VICE PRESIDENT/PA spoke with Dr. Csaon @ [id number] Consulting Provider: SAUL CASON Physician Instructions: Reason For Exam: cholecystitis [facility] Reason for admission: abd pain Condition: Stable Hospital course: 33-year-old mother of 4 with no significant past medical history presented to [facility] ED with complaints of epigastric abdominal pain x2days [employer]. She stated she had been experiencing sharp epigastric pain radiating to RUQ for the past 2 days. Patient stated her pain was constant but varied in intensity. The patient was noted to have some associated nausea and vomiting as well. The patient was seen by surgery in consultation who felt that etiology of the abdominal pain was likely a passed small CBD stone. LFTs were never elevated. Initial ultrasound revealed cholelithiasis with questionable cholecystitis. Common bile duct mildly dilated measuring at 10 and limbs. However follow-up MRCP revealed cholelithiasis but no findings suggestive of acute cholecystitis. Common bile duct reduced in size to 6mm. Patient's diet was advanced which she tolerated. Patient is felt to have received maximal hospital benefit and will discharge home. Patient's follow-up with general surgery as an outpatient. Dedicated discharge time 32 minutes. Disposition: -01 TO HOME OR SELFCARE Time spent for discharge: 32 - Discharge Diagnoses (1) Abdominal pain Status: Acute (2) Nausea & vomiting Status: Acute (3) Cholelithiasis Status: Acute Qualifiers: Cholelithiasis location: bile duct Cholecystitis presence: with cholecystitis Cholecystitis acuity: acute Biliary obstruction: with biliary obstruction Qualified Code(s): K80.43 - Calculus of bile duct with acute cholecystitis with obstruction Core Measure Documentation - Palliative Care Palliative Care/ Comfort Measures: Not Applicable - Core Measures Any of the following diagnoses?: none Exam - Constitutional Vitals: Temp Pulse Resp BP Pulse Ox 97.7 F 57 L 20 116/74 99 02/18/19 05:39 02/18/19 05:39 02/18/19 05:39 02/18/19 05:39 02/18/19 05:39 General appearance: Present: no acute distress, well-nourished - EENT Eyes: Present: PERRL ENT: hearing intact, clear oral mucosa - Neck Neck: Present: supple, normal ROM - Respiratory Respiratory effort: normal Respiratory: bilateral: CTA - Cardiovascular Heart Sounds: Present: S1 & S2. Absent: rub, click - Extremities Extremities: pulses symmetrical, No edema Peripheral Pulses: within normal limits - Abdominal General gastrointestinal: Present: soft, non-tender, non-distended, normal bowel sounds Female genitourinary: Present: normal - Integumentary Integumentary: Present: clear, warm, dry - Musculoskeletal Musculoskeletal: gait normal, strength equal bilaterally - Psychiatric Psychiatric: appropriate mood/affect, intact judgment & insight - Neurologic Neurologic: CNII-XII intact, moves all extremities Plan Activity: no restrictions Weight Bearing Status: Full Weight Bearing Diet: low fat, low cholesterol Follow up with: PEDRO HILL MD [Primary Care Provider] - 3-5 Days Prescriptions: oxyCODONE /ACETAMINOPHEN [Percocet 5/325 mg] 2 tab PO Q6HR PRN #10 tablet PRN Reason: Pain
--- NOTE | 2019-02-18 11:21 | Progress Note ---
Assessment and Plan Pt feeling well. neg pain. babita cl liq diet Abd soft, non tender advance to low fat full liq diet would prefer to wait 1-2 wks prior to lap GB to allow biliary duct inflammation and distention to subside thus decreasing risk of iatrogenic duct injuries or stump leakage may d/c from surg perspective if low fat full liq diet babita advance to solid low fat diet in am rto Sunday Selected Entries 02/18/19 02/18/19 00:34 05:39 Temperature 97.7 F Pulse Rate 57 L Respiratory 18 Rate Blood Pressure 116/74 Objective Vital Signs - 12hr 02/18/19 02/18/19 00:34 05:39 Temperature 97.7 F Pulse Rate 57 L Respiratory 18 20 Rate Blood Pressure 116/74 O2 Sat by Pulse 99 Oximetry - Labs 02/17/19 07:05 02/17/19 07:05
[2019-02-18 13:38] VITALS: BP 117/65
== END 2019-02-18 18:15 | disposition home or self-care (01) | DRG 446 ==
LOC: ED 17:05 → 3A 23:16
PROVIDERS: ADMIT Internal Medicine; ATTEND Hospitalist
DX: K80.43 Calculus of bile duct with acute cholecystitis with obstruction (principal); K21.9 Gastro-esophageal reflux disease without esophagitis; I10 Essential (primary) hypertension; E86.0 Dehydration
CPT/HCPCS: 36415; 74181; 76705; 80048; 80053; 81001; 81025; 83690; 85025; 96361; 96365; 96375; G0378; J1200; J1650; J1885; J2270; J2405; J2543; J2765; J7030

== ENCOUNTER 2020-02-03 12:05 | Day surgery (SDC) | payer OTHER ==
[~2020-02-03 12:05] MED LIST: BUPIVACAINE/PF (0.5%) 5 MG/1 ML 10 ML VIAL INFILTRATI ONE; BUPIVACAINE/PF (0.5%) 5 MG/1 ML 30 ML VIAL INFILTRATI ONE; CELECOXIB 200 MG CAP PO NR; GABAPENTIN 300 MG CAP PO NR; GLYCOPYRROLATE 0.4 MG/2 ML INJ ONE; HYDROmorphone 1 MG/1 ML INJ IV PRN; HYDROmorphone 1 MG/1 ML INJ ONE; LACTATED RINGERS 1,000 ML IV SCH; LACTATED RINGERS 1,000 ML ONE; LIDOCAINE (1%) 10 MG/1 ML VIAL 20 ML MDV INFILTRATI ONE; LIDOCAINE (1%) 10 MG/1 ML VIAL 20 ML MDV ONE; LIDOCAINE MPF (2%) 20 MG/1 ML VIAL 5 ML ONE; MAGNESIUM OXIDE 400 MG TAB PO SCH; MIDAZOLAM 2 MG/2 ML INJ IV NR; NEOSTIGMINE 10MG/10 ML INJ MDV ONE; ONDANSETRON 4 MG/2 ML INJ ONE; ROCURONIUM 50 MG/5 ML INJ IV ONE; SODIUM CHLORIDE 0.9% IRR 1,500 ML BOTTLE IR ONE; ceFAZolin/Water 2 GM/20 ML 2 GM/20 ML SYRINGE IV NR; dexAMETHasone 20 MG/5 ML VIAL ONE; propofoL 200 MG/20 ML VIAL IV ONE
[2020-02-03] MEDS ORDERED: HYDROcodone/ACETAMINOPHEN 5-325 MG TAB PO PRN (12:08)
[2020-02-03 13:02] VITALS: BP 110/56
== END 2020-02-03 12:06 | disposition home or self-care (01) ==
LOC: OR 12:05
PROVIDERS: ATTEND Surgery
DX: K80.20 Calculus of gallbladder without cholecystitis without obstruction (principal); K21.9 Gastro-esophageal reflux disease without esophagitis; Z11.59 Encounter for screening for other viral diseases; Z87.440 Personal history of urinary (tract) infections; Z79.899 Other long term (current) drug therapy; Z98.890 Other specified postprocedural states
CPT/HCPCS: 47562; 81025; 88304; J0690; J1100; J1170; J2250; J2405; J2704; J2710; J7120; U0003